=== PATIENT | female | born 1970 | race Caucasian/White ===

== ENCOUNTER 2017-05-27 17:26 | Observation (INO) | payer MEDICAID ==
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
[2017-05-27] MEDS ORDERED: Sodium Chloride 0.9% 1,000 ML IV ONE (18:07)
[2017-05-27] MEDS ORDERED: Meclizine 25 MG Tab PO ONE (18:08)
[2017-05-27] MEDS ORDERED: LORazepam 2 MG/ML MDV IVPUSH ONE (18:08)
[2017-05-27 19:08] LABS: CHLORIDE,CL 107 mmol/L (98-110); SODIUM,NA 140 mmol/L (136-146)
[2017-05-27] MEDS ORDERED: Temazepam 15 MG Cap PO PRN (20:37)
[2017-05-27] MEDS ORDERED: Ibuprofen 200 MG Tab PO PRN (20:37)
[2017-05-27] MEDS ORDERED: Ondansetron 4 MG Tab.DIS PO PRN (20:37)
--- NOTE | 2017-05-27 20:37 | PCM.HP ---
H&P History of Present Illness - General Date of Service: 05/27/17 Admit Problem/Dx: Admission Diagnosis/Problem Admission Diagnosis/Problem Anemia - History of Present Illness Initial Comments - Free Text/Narative: 46-year-old female presenting to ED with chief complaint of dizziness and fatigue 1 month with history of dysfunctional uterine bleeding. Patient states that over the last month she has noticed that she has been more fatigued with occasional episodes of dizziness when she gets up fast. She also states that she has had a headache on and off for the past month. . Patient did have a negative MRI on May 17. Patient does state that she has a history of dysfunctional uterine bleeding and notice a few times over the past month having a "gush of blood" from her vagina area. She does not have a regular cycle. She denies any bloody stool or dark tarry stools. She has not seen a regular provider in quite some time. In the emergency department patient was found to have a hemoglobin of 6.4 with hematocrit 20.1. ECG, CMP, and UA were unremarkable. Patient will be admitted for anemia. Chest Pain Score (Numeric/FACES): 7 - Related Data Allergies/Adverse Reactions: Allergies Allergy/AdvReac Type Severity Reaction Status Date / Time codeine Allergy Hives Verified 05/27/17 17:35 Home Medications: Home Meds . [No Known Home Meds] 05/27/17 [History] Past Medical History HEENT History: Reports: None Cardiovascular History: Reports: None Respiratory History: Reports: None Gastrointestinal History: Reports: None Genitourinary History: Reports: None AURIST History: Reports: Other (See Below) Other OB/BYN History: tubal . Musculoskeletal History: Reports: None Neurological History: Reports: None Psychiatric History: Reports: None Endocrine/Metabolic History: Reports: None Hematologic History: Reports: None Immunologic History: Reports: None Oncologic (Cancer) History: Reports: None Dermatologic History: Reports: None - Past Surgical History Head Surgeries/Procedures: Reports: None HEENT Surgical History: Reports: None Cardiovascular Surgical History: Reports: None Respiratory Surgical History: Reports: None GI Surgical History: Reports: Other (See Below) Female Surgical History: Reports: None, Tubal Ligation Endocrine Surgical History: Reports: None Neurological Surgical History: Reports: None Musculoskeletal Surgical History: Reports: None Oncologic Surgical History: Reports: None Dermatological Surgical History: Reports: None Social & Family History - Family History Family Medical History: Noncontributory - Tobacco Use Smoking Status *Q: Never Smoker - Caffeine Use Caffeine Use: Reports: None - Recreational Drug Use Recreational Drug Use: No H&P Review of Systems - Review of Systems: Review Of Systems: See Below General: Reports: Weakness, Fatigue. Denies: Fever, Chills HEENT: Reports: Headaches. Denies: Contact Lenses, Sore Throat Pulmonary: Reports: Shortness of Breath, Cough. Denies: Wheezing, Sputum Cardiovascular: Denies: Chest Pain, Palpitations, Edema Gastrointestinal: Denies: Abdominal Pain, Black Stool, Bloody Stool Genitourinary: Reports: Abnormal Menses. Denies: Dysuria, Hematuria Musculoskeletal: Denies: Neck Pain, Leg Pain Skin: Denies: Cyanosis Psychiatric: Denies: Confusion Neurological: Reports: Headache. Denies: Confusion, Dizziness Exam - Exam Exam: See Below - Vital Signs Vital Signs: Last Vital Signs Temp 98.7 F 05/27/17 17:35 Pulse 68 05/27/17 20:17 Resp 18 05/27/17 20:17 BP 133/75 05/27/17 20:17 Pulse Ox 98 05/27/17 20:17 Weight: 52.163 kg - Exam Quality Assessment: DVT Prophylaxis General: Alert, Oriented, Cooperative HEENT: Conjunctiva Clear, EACs Clear, EOMI, Hearing Intact, Mucosa Moist & [place] , Nares Patent, Normal Nasal Septum, Posterior Pharynx Clear, PERRLA Neck: Supple, Trachea Midline, 2 Lungs: Clear to Auscultation, Normal Respiratory Effort Cardiovascular: Regular Rate, Regular Rhythm, Normal S1, Normal S2 GI/Abdominal Exam: Normal Bowel Sounds, Soft, Non-Tender, No Organomegaly, No Distention Rectal (Female) Exam: Normal Exam Back Exam: Normal Inspection Extremities: Normal Inspection, Normal Range of Motion, Non-Tender, No Pedal Edema, Normal Capillary Refill Peripheral Pulses: 2+: Radial (L), Radial (R), Posterior Tibial (L), Posterior Tibial (R), Dorsalis Pedis (L), Dorsalis Pedis (R) Skin: Warm, Dry, Intact Neurological: Cranial Nerves Intact Neuro Extensive - Mental Status: Alert, Oriented x3, Normal Mood/Affect, Normal Cognition Neuro Extensive - Motor, Sensory, Reflexes: CN II-XII Intact Psychiatric: Alert, Normal Affect, Normal Mood - Patient Data Lab Results Last 24 hrs: Laboratory Results - last 24 hr 05/27/17 05/27/17 05/27/17 Range/Units 18:30 18:30 18:30 WBC 8.44 (4.0-11.0) K/uL RBC 2.39 L (4.30-5.90) M/uL Hgb 6.4 L (12.0-16.0) g/dL Hct 20.1 L (36.0-46.0) % MCV 84.1 (80.0-98.0) fL MCH 26.8 L (27.0-32.0) pg MCHC 31.8 (31.0-37.0) g/dL RDW Std Deviation 40.8 (28.0-62.0) fl RDW Coeff of Kathy 13 (11.0-15.0) % Plt Count 302 (150-400) K/uL MPV 8.80 (7.40-12.00) fL Add Manual Diff YES Neutrophils % (Manual) 77 (48.0-80.0) % Band Neutrophils % 1 % Lymphocytes % (Manual) 20 (16.0-40.0) % Monocytes % (Manual) 1 (0.0-15.0) % Eosinophils % (Manual) 1 (0.0-7.0) % Nucleated RBC % 0.0 /100WBC Absolute Seg Neuts 6.5 H (1.4-5.7) Band Neutrophils # 0.1 Lymphocytes # (Manual) 1.7 (0.6-2.4) Monocytes # (Manual) 0.1 (0.0-0.8) Eosinophils # (Manual) 0.1 (0.0-0.7) Nucleated RBCs # 0 K/uL Sodium 140 (136-146) mmol/L Potassium 3.7 (3.5-5.1) mmol/L Chloride 107 (98-110) mmol/L Carbon Dioxide 24 (21-31) mmol/L BUN 11 (6.0-23.0) mg/dL Creatinine 0.7 (0.6-1.5) mg/dL Est Cr Clr Drug Dosing 74.17 mL/min Estimated GFR (MDRD) > 60.0 ml/min Glucose 83 (60-110) mg/dL Calcium 8.9 (8.8-10.8) mg/dL Total Bilirubin 0.3 (0.1-1.5) mg/dL AST 19 (5-40) IU/L ALT 14 (8-54) IU/L Alkaline Phosphatase 57 (40-150) Total Protein 6.6 (6.0-8.0) g/dL Albumin 3.9 (3.5-5.0) g/dL Globulin 2.7 (2.0-3.5) g/dL Albumin/Globulin Ratio 1.4 (1.3-2.8) Amylase 78 (10-90) U/L Lipase 13 (7-80) U/L Urine Color Urine Appearance Urine pH (5.0-8.0) Ur Specific [place] (1.001-1.035) Urine Protein (NEGATIVE) mg/dL Urine Glucose (UA) (NEGATIVE) mg/dL Urine Ketones (NEGATIVE) mg/dL Urine Occult Blood (NEGATIVE) Urine Nitrite (NEGATIVE) Urine Bilirubin (NEGATIVE) Urine Urobilinogen (<2.0) EU/dL Ur Leukocyte Esterase (NEGATIVE) Urine RBC (0-2/HPF) Urine WBC (0-5/HPF) Ur Epithelial Cells (NONE-FEW) Amorphous Sediment (NEGATIVE) Urine Bacteria (NEGATIVE) Blood Type O NEGATIVE Antibody Screen NEGATIVE Crossmatch See Detail 05/27/17 Range/Units 18:32 WBC (4.0-11.0) K/uL RBC (4.30-5.90) M/uL Hgb (12.0-16.0) g/dL Hct (36.0-46.0) % MCV (80.0-98.0) fL MCH (27.0-32.0) pg MCHC (31.0-37.0) g/dL RDW Std Deviation (28.0-62.0) fl RDW Coeff of Kathy (11.0-15.0) % Plt Count (150-400) K/uL MPV (7.40-12.00) fL Add Manual Diff Neutrophils % (Manual) (48.0-80.0) % Band Neutrophils % % Lymphocytes % (Manual) (16.0-40.0) % Monocytes % (Manual) (0.0-15.0) % Eosinophils % (Manual) (0.0-7.0) % Nucleated RBC % /100WBC Absolute Seg Neuts (1.4-5.7) Band Neutrophils # Lymphocytes # (Manual) (0.6-2.4) Monocytes # (Manual) (0.0-0.8) Eosinophils # (Manual) (0.0-0.7) Nucleated RBCs # K/uL Sodium (136-146) mmol/L Potassium (3.5-5.1) mmol/L Chloride (98-110) mmol/L Carbon Dioxide (21-31) mmol/L BUN (6.0-23.0) mg/dL Creatinine (0.6-1.5) mg/dL Est Cr Clr Drug Dosing mL/min Estimated GFR (MDRD) ml/min Glucose (60-110) mg/dL Calcium (8.8-10.8) mg/dL Total Bilirubin (0.1-1.5) mg/dL AST (5-40) IU/L ALT (8-54) IU/L Alkaline Phosphatase (40-150) Total Protein (6.0-8.0) g/dL Albumin (3.5-5.0) g/dL Globulin (2.0-3.5) g/dL Albumin/Globulin Ratio (1.3-2.8) Amylase (10-90) U/L Lipase (7-80) U/L Urine Color YELLOW Urine Appearance CLEAR Urine pH 7.0 (5.0-8.0) Ur Specific [place] 1.010 (1.001-1.035) Urine Protein NEGATIVE (NEGATIVE) mg/dL Urine Glucose (UA) NEGATIVE (NEGATIVE) mg/dL Urine Ketones NEGATIVE (NEGATIVE) mg/dL Urine Occult Blood TRACE-LYSED (NEGATIVE) Urine Nitrite NEGATIVE (NEGATIVE) Urine Bilirubin NEGATIVE (NEGATIVE) Urine Urobilinogen 0.2 (<2.0) EU/dL Ur Leukocyte Esterase NEGATIVE (NEGATIVE) Urine RBC 0-1 (0-2/HPF) Urine WBC 0-1 (0-5/HPF) Ur Epithelial Cells FEW (NONE-FEW) Amorphous Sediment RARE (NEGATIVE) Urine Bacteria RARE (NEGATIVE) Blood Type Antibody Screen Crossmatch Result Diagrams: 05/27/17 18:30 05/27/17 18:30 *Q Meaningful Use (ADM) - VTE *Q VTE Criteria *Q: - Stroke *Q Stroke Criteria *Q: - AMI *Q AMI Criteria *Q: - Problem List (1) Anemia SNOMED Code(s): 103779703 ICD Code: D64.9 - ANEMIA, UNSPECIFIED Status: Acute Current Visit: Yes Qualifiers: Anemia type: unspecified type Qualified Code(s): D64.9 - Anemia, unspecified Problem List Initiated/Reviewed/Updated: Yes Orders Last 24hrs: Active Orders 24 hr Category Date Time Status Admission Status [Patient Status] [ADT] Stat ADT 05/27/17 20:23 Active RED BLOOD CELLS LP [BBK] Stat Lab 05/27/17 18:30 Results TYPE AND SCREEN [BBK] Stat Lab 05/27/17 18:30 Results Transfuse Red Blood Cells [COMM] Stat Oth 05/27/17 18:59 Ordered Assessment/Plan Comment:: 38-year-old female admitted 05/27/17 for anemia hemoglobin of 6.4 with history of dysfunctional uterine bleeding. Anemia: Most likely secondary to dysfunctional uterine bleeding. Will type and cross and transfuse 2 units of packed red blood cells now. Iron studies and peripheral smear. Fecal occult to collect. Plan to consult draw bench operator helper tomorrow am. Repeat h and h after 2 units and possible additional transfusion. DUB: hx will consult draw bench operator helper. She denies seeing a provider in quite some time. No hx of cancer. VTE: SCD no pharm secondary to possible active bleeding. Dispo: 1-2 days pending.
[2017-05-27] MEDS ORDERED: Sodium Chloride 0.9% 1,000 ML IV SCH (20:45)
[2017-05-28] MEDS: oxyCODONE 5 MG Tab PO PRN ×3 (06:00→19:50)
--- NOTE | 2017-05-28 06:37 | PCM.PN ---
- General Info Date of Service: 05/28/17 Admission Dx/Problem (Free Text): Admission Diagnosis/Problem Admission Diagnosis/Problem Anemia Subjective Update: Feeling a bit better this morning. Not as tired. Headache overnight but improved now after pain medication. Reports no vaginal bleeding. No chest pain , sob, palpitations, abd pain, leg pain. Functional Status: Reports: Pain Controlled, Ambulating, Urinating - Review of Systems General: Reports: Fatigue. Denies: Fever, Weakness HEENT: Reports: Headaches. Denies: Sore Throat, Visual Changes Pulmonary: Denies: Shortness of Breath, Hemoptysis Cardiovascular: Denies: Chest Pain, Palpitations, Edema Gastrointestinal: Denies: Abdominal Pain, Nausea, Vomiting Genitourinary: Denies: Dysuria, Hematuria Musculoskeletal: Denies: Neck Pain, Leg Pain Skin: Denies: Cyanosis Neurological: Denies: Confusion, Dizziness, Headache Psychiatric: Denies: Confusion - Patient Data Vitals - Most Recent: Last Vital Signs Temp 98.6 F 05/28/17 04:49 Pulse 72 05/28/17 04:49 Resp 16 05/28/17 04:49 BP 97/53 L 05/28/17 04:49 Pulse Ox 95 05/28/17 04:49 Weight - Most Recent: 57.9 kg I&O - Last 24 Hours: Intake & Output 05/27/17 05/27/17 05/28/17 14:59 22:59 06:59 Intake Total 12 718 Output Total 1400 Balance 12 -682 Med Orders - Current: Current Medications Sodium Chloride (Normal Saline) 1,000 mls @ 125 mls/hr IV ASDIRECTED [facility] Last Admin: 05/28/17 04:45 Dose: 125 mls/hr Ibuprofen (Motrin) 200 mg PO Q6H PRN PRN Reason: Pain (mild 1-3) Ondansetron HCl (Zofran Odt) 4 mg PO Q4H PRN PRN Reason: nausea, able to take PO Oxycodone HCl (Oxycodone) 5 mg PO Q4H PRN PRN Reason: Pain (moderate 4-6) Last Admin: 05/28/17 06:00 Dose: 5 mg Temazepam (Restoril) 15 mg PO BEDTIME PRN PRN Reason: Sleep Discontinued Medications Sodium Chloride (Normal Saline) 1,000 mls @ 999 mls/hr IV STAT ONE Stop: 05/27/17 19:07 Last Admin: 05/27/17 18:35 Dose: 999 mls/hr Lorazepam (Ativan) 2 mg IVPUSH ONETIME ONE Stop: 05/27/17 18:09 Last Admin: 05/27/17 18:35 Dose: 2 mg Meclizine HCl (Antivert) 25 mg PO ONETIME ONE Stop: 05/27/17 18:09 Last Admin: 05/27/17 18:35 Dose: 25 mg - Exam Quality Assessment: DVT Prophylaxis General: Alert, Oriented, Cooperative, No Acute Distress HEENT: Pupils Equal, Pupils Reactive, EOMI, Mucous Membr. Moist/[place] Neck: Supple Lungs: Clear to Auscultation, Normal Respiratory Effort Cardiovascular: Regular Rate, Regular Rhythm GI/Abdominal Exam: Normal Bowel Sounds, Soft, Non-Tender, No Organomegaly, No Distention Back Exam: Normal Inspection Extremities: Normal Inspection, Non-Tender, No Pedal Edema Peripheral Pulses: 2+: Radial (L), Radial (R), Posterior Tibial (L), Posterior Tibial (R), Dorsalis Pedis (L), Dorsalis Pedis (R) Skin: Warm, Dry, Intact Neurological: No New Focal Deficit Psy/Mental Status: Alert, Normal Affect, Normal Mood - Problem List & Annotations (1) Anemia SNOMED Code(s): 471684232 Code(s): D64.9 - ANEMIA, UNSPECIFIED Status: Acute Priority: High Current Visit: Yes Qualifiers: Anemia type: iron deficiency Iron deficiency anemia type: chronic blood loss Qualified Code(s): D50.0 - Iron deficiency anemia secondary to blood loss (chronic) - Problem List Review Problem List Initiated/Reviewed/Updated: Yes - My Orders Last 24 Hours: My Active Orders 05/28/17 06:04 BASIC METABOLIC PANEL,BMP [CHEM] Routine CBC WITH AUTO DIFF [HEME] Routine 05/28/17 Breakfast Regular Diet [DIET] - Plan Plan:: 38-year-old female admitted 05/27/17 for anemia hemoglobin of 6.4 with history of dysfunctional uterine bleeding. Anemia: Most likely secondary to dysfunctional uterine bleeding. Received 2 units prbc's hgb increased fom 6.4 to 8.8. Will get Hgb at noon to see if stabilized. Have ordered transvaginal US. Dr. Alexander, road freight brake coupler consulted. DUB: hx will consult butt maker. She denies seeing a provider in quite some time. No hx of cancer. VTE: SCD no pharm secondary to possible active bleeding. Dispo: 1-2 days pending.
[2017-05-28 06:55] LABS: CHLORIDE,CL 109 mmol/L (98-110); SODIUM,NA 137 mmol/L (136-146)
--- NOTE | 2017-05-28 18:57 | PCM.SN ---
- Free Text/Narrative Note: Transvaginal US 05/28/17: 1. Normal endometrial stripe thickness at 9mm. 2. 5 mm sub endometrial cyst in the posterior fundus, significance doubtful. 3. 3.9 cm left ovarian cyst with a 1.6 cm daughter cyst. Both cystic components echo-free 4. Possible 1.6 cm intramural posterior uterine fundal fibroid
[2017-05-29] MEDS: oxyCODONE 5 MG Tab PO PRN ×2 (00:08→08:01)
--- NOTE | 2017-05-29 03:26 | CONS ---
DATE OF CONSULTATION: DATE OF : 1970 PRIMARY CARE PHYSICIAN: None PCP Ms. Gee is a 46-year-old parous patient. She is admitted to [facility] with vaginal bleeding and iron deficiency anemia with a hemoglobin of 6. The patient has not seen a multi line claims adjuster for a period of time, and she has being having excessive vaginal bleeding for extended period of time. The patient is transfused 2 units of packed cells yesterday, and her hemoglobin is now up to 8. She is having minimum vaginal bleeding right now, and her condition is improved since admission. I was consulted for evaluation. I advised the hospitalist doctor, which is Dr. Zambrano who requested the consultation, to order a pelvic ultrasound on the patient, and the patient is going to need endometrial biopsy and again need a good pelvic examination. Since, at this time, the equipment is not available to do this inside the hospital, he is planning to send the patient home tomorrow. I am going to schedule her for an appointment early next week for complete pelvic examination, endometrial biopsy and evaluation, and possible treatment solution for this excessive vaginal bleeding. PATRIZIA / RICA /[id number]
[2017-05-29 05:35] LABS: CHLORIDE,CL 107 mmol/L (98-110); SODIUM,NA 136 mmol/L (136-146)
--- NOTE | 2017-05-29 08:09 | PCM.DCSUM1 ---
Discharge Summary - Hospital Course HPI Initial Comments: 38-year-old female admitted 05/27/17 for anemia hemoglobin of 6.4 with history of dysfunctional uterine bleeding. Brief History: Patient stated that over the last month she had noticed that she was more fatigued with occasional episodes of dizziness when she gets up fast. She also stated that she has had a headache on and off for the past month. . Patient did have a negative MRI on May 17. Patient did state that she has a history of dysfunctional uterine bleeding and notice a few times over the past month having a "gush of blood" from her vaginal area. She does not have a regular cycle. She denies any bloody stool or dark tarry stools. She has not seen a regular provider in quite some time. - Discharge Data Discharge Date: 05/29/17 Discharge Disposition: Home, Self-Care 01 Condition: Good - Discharge Diagnosis/Problem(s) (1) Anemia SNOMED Code(s): 369168949 ICD Code: D64.9 - ANEMIA, UNSPECIFIED Status: Resolved Priority: High Qualifiers: Anemia type: iron deficiency Iron deficiency anemia type: chronic blood loss Qualified Code(s): D50.0 - Iron deficiency anemia secondary to blood loss (chronic) - Patient Summary/Data Consults: Consultations 05/28/17 08:51 Consult to Physician [CONS] Routine - Patient Instructions Diet: Usual Diet as Tolerated Activity: Rest and Relax Today Driving: Do Not Drive Showering/Bathing: May Shower Notify Provider of: Fever, Increased Pain, Nausea and/or Vomiting - Discharge Plan Home Medications: Home Meds . [No Known Home Meds] 05/27/17 [History] Patient Handouts: Anemia, Nonspecific Referrals: Ty Alexander MD [Physician] - Isabela Aceves MD [Primary Care Provider] - - Discharge Summary/Plan Comment DC Time >30 min.: Yes Discharge Summary/Plan Comment: 38-year-old female admitted 05/27/17 for anemia hemoglobin of 6.4 with history of dysfunctional uterine bleeding. Patient stated that over the last month she had noticed that she was more fatigued with occasional episodes of dizziness when she gets up fast. She also stated that she has had a headache on and off for the past month. . Patient did have a negative MRI on May 17. Patient did state that she has a history of dysfunctional uterine bleeding and notice a few times over the past month having a "gush of blood" from her vaginal area. She does not have a regular cycle. She denies any bloody stool or dark tarry stools. She has not seen a regular provider in quite some time. In the emergency department patient was found to have a hemoglobin of 6.4 with hematocrit 20.1. ECG, CMP, and UA were unremarkable. Patient will be admitted for anemia and transfused 2 units of packed red blood cells with resulting hemoglobin increased to 9.2. Transvaginal ultrasound was performed showing a normal endometrial stripe thickness of 9 mm, 5 mm sub- endometrial cyst in the posterior fundus, 3.9 cm left ovarian cyst with a 1.6 cm daughter cyst both cystic components echo-free, and possible 1.6 cm intramural posterior uterine fundal fibroid. Dr. Alexander, INDUSTRIAL GAS [employer]TER was consulted and recommended follow-up with him the following week. On day of discharge patient's hemoglobin had stabilized at 9.0 and she was discharged in good condition with follow-up with her primary care provider as well as Dr. Alexander, INDUSTRIAL GAS FITTER, the following week. She was instructed to return to the emergency department if she had any return of her symptoms. Patient's iron deficient anemia was most likely secondary to slow chronic dysfunctional uterine bleeding over the past month. - General Info Date of Service: 05/29/17 Admission Dx/Problem (Free Text: Admission Diagnosis/Problem Admission Diagnosis/Problem Anemia Subjective Update: Doing well this morning. Not as fatigued. Headache overnight relieved with pain medication. No nausea or vomiting. Would like to be discharged this am. Functional Status: Reports: Pain Controlled - Review of Systems General: Denies: Fever, Weakness, Fatigue HEENT: Denies: Headaches, Visual Changes Pulmonary: Denies: Shortness of Breath, Hemoptysis Cardiovascular: Denies: Chest Pain, Edema Gastrointestinal: Denies: Abdominal Pain, Diarrhea, Nausea, Vomiting Genitourinary: Denies: Dysuria, Hematuria Musculoskeletal: Denies: Neck Pain, Leg Pain Skin: Denies: Cyanosis Neurological: Denies: Confusion, Dizziness, Headache Psychiatric: Denies: Confusion - Patient Data Vitals - Most Recent: Last Vital Signs Temp 98.2 F 05/29/17 04:00 Pulse 61 05/29/17 04:00 Resp 16 05/29/17 04:00 BP 118/65 05/29/17 04:00 Pulse Ox 95 05/29/17 04:00 Weight - Most Recent: 57.9 kg I&O - Last 24 hours: Intake & Output 05/28/17 05/29/17 05/29/17 22:59 06:59 14:59 Intake Total 1700 720 Output Total 600 500 Balance 1100 220 Lab Results - Last 24 hrs: Laboratory Results - last 24 hr 05/28/17 05/29/17 05/29/17 Range/Units 12:07 04:43 04:43 WBC 6.25 (4.0-11.0) K/uL RBC 3.32 L (4.30-5.90) M/uL Hgb 9.2 L 9.0 L (12.0-16.0) g/dL Hct 27.9 L (36.0-46.0) % MCV 84.0 (80.0-98.0) fL MCH 27.1 (27.0-32.0) pg MCHC 32.3 (31.0-37.0) g/dL RDW Std Deviation 43.5 (28.0-62.0) fl RDW Coeff of Kathy 14 (11.0-15.0) % Plt Count 247 (150-400) K/uL MPV 9.20 (7.40-12.00) fL Neut % (Auto) 44.3 L (48.0-80.0) % Lymph % (Auto) 41.0 H (16.0-40.0) % [place] % (Auto) 9.4 (0.0-15.0) % Eos % (Auto) 4.5 (0.0-7.0) % Baso % (Auto) 0.8 (0.0-1.5) % Neut # (Auto) 2.8 (1.4-5.7) K/uL Lymph # (Auto) 2.6 H (0.6-2.4) K/uL [place] # (Auto) 0.6 (0.0-0.8) K/uL Eos # (Auto) 0.3 (0.0-0.7) K/uL Baso # (Auto) 0.1 (0.0-0.1) K/uL Nucleated RBC % 0.0 /100WBC Nucleated RBCs # 0 K/uL Sodium 136 (136-146) mmol/L Potassium 3.9 (3.5-5.1) mmol/L Chloride 107 (98-110) mmol/L Carbon Dioxide 22 (21-31) mmol/L BUN 17 (6.0-23.0) mg/dL Creatinine 0.7 (0.6-1.5) mg/dL Est Cr Clr Drug Dosing 74.17 mL/min Estimated GFR (MDRD) > 60.0 ml/min Glucose 109 (60-110) mg/dL Calcium 8.2 L (8.8-10.8) mg/dL Med Orders - Current: Current Medications Ibuprofen (Motrin) 200 mg PO Q6H PRN PRN Reason: Pain (mild 1-3) Last Admin: 05/28/17 22:00 Dose: 200 mg Ondansetron HCl (Zofran Odt) 4 mg PO Q4H PRN PRN Reason: nausea, able to take PO Oxycodone HCl (Oxycodone) 5 mg PO Q4H PRN PRN Reason: Pain (moderate 4-6) Last Admin: 05/29/17 08:01 Dose: 5 mg Temazepam (Restoril) 15 mg PO BEDTIME PRN PRN Reason: Sleep Discontinued Medications Sodium Chloride (Normal Saline) 1,000 mls @ 999 mls/hr IV STAT ONE Stop: 05/27/17 19:07 Last Admin: 05/27/17 18:35 Dose: 999 mls/hr Sodium Chloride (Normal Saline) 1,000 mls @ 125 mls/hr IV ASDIRECTED [facility] Last Admin: 05/28/17 04:45 Dose: 125 mls/hr Lorazepam (Ativan) 2 mg IVPUSH ONETIME ONE Stop: 05/27/17 18:09 Last Admin: 05/27/17 18:35 Dose: 2 mg Meclizine HCl (Antivert) 25 mg PO ONETIME ONE Stop: 05/27/17 18:09 Last Admin: 05/27/17 18:35 Dose: 25 mg - Exam Quality Assessment: Reports: DVT Prophylaxis General: Reports: Alert, Oriented, Cooperative HEENT: Reports: Pupils Equal, Pupils Reactive, EOMI, Mucous Membr. Moist/[place] Neck: Reports: Supple, Trachea Midline Lungs: Reports: Clear to Auscultation, Normal Respiratory Effort Cardiovascular: Reports: Regular Rate, Regular Rhythm, No Murmurs GI/Abdominal Exam: Normal Bowel Sounds, Soft, Non-Tender, No Organomegaly, No Distention, No Abnormal Bruit, No Mass, Pelvis Stable Back Exam: Reports: Normal Inspection Extremities: Normal Inspection, Normal Range of Motion, Non-Tender, No Pedal Edema, Normal Capillary Refill Skin: Reports: Warm, Dry, Intact Wound/Incisions: Reports: Healing Well Neurological: Reports: No New Focal Deficit Psy/Mental Status: Reports: Alert, Normal Affect, Normal Mood *Q Meaningful Use (DIS) - VTE *Q VTE Criteria *Q: - Stroke *Q Stroke Criteria *Q: - AMI *Q AMI Criteria *Q:
--- NOTE | 2017-05-30 10:12 | US ---
EXAM DATE: 05/27/17 PATIENT'S AGE: 46 Patient: ZULEMA HAMMOND Facility: [place], [place] Site . Site : 1970 Study: US Pelvis [id number] 10:15:09 AM Ordering Physician: Juan Manuel Reed Final Report: INDICATION: Dysfunctional uterine bleeding. TECHNIQUE: Transvaginal scanning was performed to optimally evaluate the endometrium and adnexa. Ovarian blood flow was evaluated with color-flow and pulsed Doppler. COMPARISON: None. FINDINGS: The uterus is normal in size and shape. The uterus measures 7.0 x 5.0 x 3.9 cm. There is question of an intramural 1.6 cm posterior uterine fundal fibroid. The endometrial stripe is normal in thickness at 9 mm. A 5 mm subendometrial cyst in the posterior fundus is noted. A 3.9 cm left ovarian cyst with 1.6 cm daughter cyst is demonstrated. The cystic components are echo-free. The right ovary measures 3.6 x 2.3 x 1.4 cm and left 3.9 x 3.0 x 2.3 cm. Ovarian blood flow is demonstrated with color-flow and pulsed Doppler. No adnexal mass is evident. No free fluid is demonstrated. IMPRESSION: 1. Normal endometrial stripe thickness at 9 mm. 2. 5 mm sub endometrial cyst in the posterior fundus, significance doubtful. 3. 3.9 cm left ovarian cyst with a 1.6 cm daughter cyst. Both cystic components echo-free. 4. Possible 1.6 cm intramural posterior uterine fundal fibroid. Dictated by Grayson Owens MD @ May 28 2017 10:43AM (Electronic Signature) Report Signed by Proxy. SIMRAN
== END 2017-05-29 10:35 | disposition home or self-care (01) ==
LOC: MW.ED 17:26 → MW.ICU 20:58 → INTOOBSV 20:58
PROVIDERS: ADMIT Family Medicine; ATTEND Family Medicine
DX: D50.0 Iron deficiency anemia secondary to blood loss (chronic) (principal); Z88.5 Allergy status to narcotic agent; Z98.51 Tubal ligation status
CPT/HCPCS: 36415; 36430; 76830; 80048; 80053; 81001; 82150; 83550; 83690; 85018; 85025; 85045; 86850; 86900; 86901; 86920; 86921; 86922; 88104; 93005; 96361; 96374; 99285; A9270; J2060; J7040; P9016; 99284; G0378

== ENCOUNTER 2017-06-09 09:09 | Day surgery (SDC) | payer MEDICAID ==
[2017-06-08 11:58] LABS: CHLORIDE,CL 104 mmol/L (98-110); SODIUM,NA 137 mmol/L (136-146)
[~2017-06-09 09:09] MED LIST: Dexamethasone 4 MG/ML 5 ML MDV ONE; Fluorescein 5 ML Vial ONE; Furosemide 40 MG/4 ML VIAL ONE; HYDROmorphone 2 MG/ML SDV ONE; Lactated Ringers 1,000 ML IV SCH; Midazolam 1 MG/ML 2 ML SDV ONE; Ondansetron 4 MG/2 ML SDV ONE; Propofol 200 MG/20 ML SDV ONE; Rocuronium 10 MG/ML 10 ML Syringe ONE; Sodium Chloride 0.9% 10 ML Syringe FLUSH PRN; Sodium Chloride 0.9% 2.5 ML Syringe FLUSH PRN; ceFAZolin 1 GM Vial IM ONE; diphenhydrAMINE 50 MG/ML SDV ONE; fentaNYL 250 MCG/5 ML SDV ONE
[2017-06-09] MEDS ORDERED: Scopolamine 1.5 MG Transdermal Patch TRDERM PRN (10:09)
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
[2017-06-09] MEDS ORDERED: Mineral Oil/Petrolatum Ophth Oint 3.5 GM Tube ONE (11:47)
[2017-06-09] MEDS ORDERED: Succinylcholine/Normal Saline 200 MG/10 ML Syringe ONE (11:48)
[2017-06-09] MEDS ORDERED: ePHEDrine 50 MG/ML SDV ONE (12:00)
[2017-06-09] MEDS ORDERED: Ketorolac 30 MG/ML SDV ONE (12:23)
[2017-06-09] MEDS ORDERED: Acetaminophen/oxyCODONE 325-5 MG Tab PO PRN (12:29)
[2017-06-09] MEDS ORDERED: Morphine 4 MG/ML Syringe IVPUSH PRN (12:29)
[2017-06-09] MEDS ORDERED: Ondansetron 4 MG/2 ML SDV IVPUSH PRN (12:29)
[2017-06-09] MEDS ORDERED: Ketorolac 30 MG/ML SDV IVPUSH ONE (12:29)
[2017-06-09] MEDS ORDERED: Ketorolac 30 MG/ML SDV IVPUSH PRN (12:29)
[2017-06-09] MEDS ORDERED: Promethazine 25 MG/ML SDV IM PRN (12:29)
--- NOTE | 2017-06-09 12:32 | PCM.OPNOTE ---
- General Post-Op/Procedure Note Date of Surgery/Procedure: 06/09/17 Operative Procedure(s): TVH,LSO and Cysto Pre Op Diagnosis: Bleeding Post-Op Diagnosis: Same Anesthesia Technique: General ET Tube Primary Surgeon: Ty Alexander Guide Cruise: Amna Melgar EBL in mLs: 75 Complications: None Condition: Good
--- NOTE | 2017-06-09 13:27 | OR ---
SURGEON: Ty Alexander MD DATE OF PROCEDURE: 06/09/2017 PREOPERATIVE DIAGNOSIS: Menometrorrhagia and anemia. POSTOPERATIVE DIAGNOSIS: Menometrorrhagia and anemia. OPERATION PERFORMED: Total vaginal hysterectomy, left salpingo-oophorectomy. The patient already had her right tube and ovary removed and cystoscopy. HOGSHEAD WEIGHER: CESAR Chiu ANESTHESIA: General endotracheal intubation, Doris Mcgraw and Dr. Herrera. ESTIMATED BLOOD LOSS: Less than 100 mL. COMPLICATIONS: None. INDICATIONS FOR SURGERY: Jasper refer to the admit note. The patient had a previous tubal and she had her right tubes and ovary removed. PROCEDURE IN DETAIL: The patient was brought to the OR, properly identified, and after adequate level of general anesthesia, the patient was placed in lithotomy position, prepped and draped in sterile fashion as usual. A straight catheter was used to empty the bladder and short-weighted speculum was placed in the vagina. A circular incision in the vaginal mucosa utilizing the cautery was done and then the posterior cul-de-sac was entered posteriorly, and the short-weighted speculum replaced with an extending long-weighted speculum. The uterosacral ligament identified from both sides, clamped with a curved Zeppelin, transected, suture ligated with 2-0 Vicryl in a Rosa fashion, held for further identification. The same thing done with the cardinal ligament and the cervicovesical space was entered anteriorly retracting the bladder completely away from the operative field, and the broad ligament was clamped with a curved Zeppelin, transected, suture ligated with 2-0 Vicryl pop-off. The uterine vessel suture ligated at this step and then the uterus was delivered posteriorly, and the superior pedicle was clamped with a curved Zeppelin from both sides. The patient had previously right salpingo-oophorectomy after a tubal ; however, the left tube and ovary was removed with the specimen. Then, the superior pedicle was tied twice with 2-0 Vicryl and held for further identification. Inspection of the operative field shows no oozing, no bleeding. The uterosacral ligament and cardinal ligament anchored to the vagina at 3 and 9 o'clock for added vaginal support, and then we proceeded to close the vaginal cuff with 2-0 Vicryl interrupted [id number] suture. After closing the vaginal cuff, cystoscopy performed, the bladder was intact, both ureteric orifices were seen with urine coming from both of them. Thus, the patency of both ureters were verified. Satisfied with these findings, the instrument and sponge count retrieved from the vagina. The instrument and sponge count was correct. The patient tolerated the procedure well and went to recovery room in stable general condition. PATRIZIA / RICA /[id number]
[2017-06-09] MEDS ORDERED: Belladonna Alkaloids/Opium 16.2-30 MG Supp RECTAL ONE (13:33)
--- NOTE | 2017-06-09 13:41 | PCM.POSTAN ---
POST ANESTHESIA ASSESSMENT - MENTAL STATUS Mental Status: Alert, Oriented - RESPIRATORY Respiratory Status: Respiratory Rate WNL, Airway Patent, O2 Saturation Stable - CARDIOVASCULAR CV Status: Pulse Rate WNL, Blood Pressure Stable - GASTROINTESTINAL GI Status: No Symptoms - PAIN Pain Score: 6 - POST OP HYDRATION Hydration Status: Adequate & Stable - OBSERVATIONS Free Text/Narrative:: no anesthesia problems
[2017-06-09] MEDS: Morphine 2 MG/ML Syringe IVPUSH PRN ×2 (14:53→18:24)
[2017-06-09] MEDS: Acetaminophen/oxyCODONE 325-5 MG Tab PO PRN ×2 (17:16→21:29)
--- NOTE | 2017-06-09 19:53 | PCM48HPAN ---
Post Anesthesia Note - EVALUATION WITHIN 48HRS OF ANESTHETIC Vital Signs in Normal Range: Yes Patient Participated in Evaluation: Yes Respiratory Function Stable: Yes Airway Patent: Yes Cardiovascular Function Stable: Yes Hydration Status Stable: Yes Pain Control Satisfactory: Yes Nausea and Vomiting Control Satisfactory: Yes Mental Status Recovered: Yes - COMMENTS/OBSERVATIONS Free Text/Narrative:: Pt resting comfortably - earlier had issues with pain control, but doing much better.
[2017-06-10] MEDS: Acetaminophen/oxyCODONE 325-5 MG Tab PO PRN ×2 (06:28→11:50)
[2017-06-10 06:54] LABS: CHLORIDE,CL 103 mmol/L (98-110); SODIUM,NA 135 mmol/L (136-146)
[2017-06-10] MEDS: Morphine 2 MG/ML Syringe IVPUSH PRN (07:53)
--- NOTE | 2017-06-10 09:15 | PCM.SURGPN ---
- General Info Date of Service: 06/10/17 POD#: 1 Functional Status: Reports: Pain Controlled - Review of Systems General: Reports: No Symptoms HEENT: Reports: No Symptoms Pulmonary: Reports: No Symptoms Cardiovascular: Reports: No Symptoms Gastrointestinal: Reports: No Symptoms Genitourinary: Reports: No Symptoms Musculoskeletal: Reports: No Symptoms Skin: Reports: No Symptoms Neurological: Reports: No Symptoms Psychiatric: Reports: No Symptoms - Patient Data Vitals - Most Recent: Last Vital Signs Temp 37.1 C 06/10/17 08:00 Pulse 80 06/10/17 08:00 Resp 18 06/10/17 08:00 BP 99/60 06/10/17 08:00 Pulse Ox 96 06/10/17 08:00 Weight - Most Recent: 58.06 kg I&O - Last 24 Hours: Intake & Output 06/09/17 06/10/17 06/10/17 22:59 06:59 14:59 Intake Total 0 975 Output Total 500 Balance 0 475 Lab Results Last 24 Hrs: Laboratory Results - last 24 hr 06/10/17 06/10/17 Range/Units 06:05 06:05 WBC 13.19 H (4.0-11.0) K/uL RBC 2.41 L (4.30-5.90) M/uL Hgb 6.3 L (12.0-16.0) g/dL Hct 20.2 L (36.0-46.0) % MCV 83.8 (80.0-98.0) fL MCH 26.1 L (27.0-32.0) pg MCHC 31.2 (31.0-37.0) g/dL RDW Std Deviation 44.4 (28.0-62.0) fl RDW Coeff of Kathy 14 (11.0-15.0) % Plt Count 234 (150-400) K/uL MPV 9.50 (7.40-12.00) fL Neut % (Auto) 74.0 (48.0-80.0) % Lymph % (Auto) 14.5 L (16.0-40.0) % [place] % (Auto) 11.3 (0.0-15.0) % Eos % (Auto) 0.1 (0.0-7.0) % Baso % (Auto) 0.1 (0.0-1.5) % Neut # (Auto) 9.8 H (1.4-5.7) K/uL Lymph # (Auto) 1.9 (0.6-2.4) K/uL [place] # (Auto) 1.5 H (0.0-0.8) K/uL Eos # (Auto) 0.0 (0.0-0.7) K/uL Baso # (Auto) 0.0 (0.0-0.1) K/uL Nucleated RBC % 0.0 /100WBC Nucleated RBCs # 0 K/uL Sodium 135 L (136-146) mmol/L Potassium 4.5 (3.5-5.1) mmol/L Chloride 103 (98-110) mmol/L Carbon Dioxide 23 (21-31) mmol/L BUN 16 (6.0-23.0) mg/dL Creatinine 0.7 (0.6-1.5) mg/dL Est Cr Clr Drug Dosing 74.17 mL/min Estimated GFR (MDRD) > 60.0 ml/min Glucose 118 H (60-110) mg/dL Calcium 8.9 (8.8-10.8) mg/dL Med Orders - Current: Current Medications Lactated Ringer's (Ringers, Lactated) 1,000 mls @ 500 mls/hr IV .[facility]ET[facility] Last Admin: 06/09/17 09:40 Dose: 500 mls/hr Ketorolac Tromethamine (Toradol) 30 mg IVPUSH Q6H PRN PRN Reason: Pain (severe 7-10) Stop: 06/14/17 12:29 Last Admin: 06/09/17 15:58 Dose: 30 mg Morphine Sulfate (Morphine) 2 mg IVPUSH Q2H PRN PRN Reason: Pain (severe 7-10) Last Admin: 06/10/17 07:53 Dose: 2 mg Morphine Sulfate (Morphine) 4 mg IVPUSH Q2H PRN PRN Reason: Pain (severe 7-10) Last Admin: 06/09/17 23:49 Dose: 4 mg Ondansetron HCl (Zofran) 4 mg IVPUSH Q6H PRN PRN Reason: Nausea/Vomiting Oxycodone/Acetaminophen (Percocet 325-5 Mg) 1 tab PO Q4H PRN PRN Reason: Pain (moderate 4-6) Oxycodone/Acetaminophen (Percocet 325-5 Mg) 2 tab PO Q4H PRN PRN Reason: Pain (moderate 4-6) Last Admin: 06/10/17 06:28 Dose: 2 tab Promethazine HCl (Phenergan) 25 mg IM Q6H PRN PRN Reason: Nausea/Vomiting Scopolamine (Transderm-Scop) 1.5 mg TRDERM Q72H PRN PRN Reason: Nausea Last Admin: 06/09/17 10:15 Dose: 1.5 mg Sodium Chloride (Saline Flush) 10 ml FLUSH ASDIRECTED PRN PRN Reason: Keep Vein Open Sodium Chloride (Saline Flush) 2.5 ml FLUSH ASDIRECTED PRN PRN Reason: Keep Vein Open Discontinued Medications Belladonna Alkaloids/Opium (B & O Supprettes No. 15a) 1 supp RECTAL ONETIME ONE Stop: 06/09/17 13:34 Last Admin: 06/09/17 13:39 Dose: 1 supp Cefazolin Sodium (Ancef) 1 gm IM ONETIME ONE Stop: 06/08/17 11:10 Last Admin: 06/09/17 15:37 Dose: Not Given Dexamethasone (Dexamethasone) Confirm Administered Dose 20 mg .ROUTE .STK-MED ONE Stop: 06/09/17 08:40 Diphenhydramine HCl (Benadryl) Confirm Administered Dose 50 mg .ROUTE .STK-MED ONE Stop: 06/09/17 08:40 Ephedrine Sulfate (Ephedrine Sulfate) Confirm Administered Dose 50 mg .ROUTE .STK-MED ONE Stop: 06/09/17 12:01 Fentanyl (Sublimaze) Confirm Administered Dose 250 mcg .ROUTE .STK-MED ONE Stop: 06/09/17 08:41 Fluorescein Sodium (Ak-Fluor) Confirm Administered Dose 5 ml .ROUTE .STK-MED ONE Stop: 06/09/17 07:23 Furosemide (Lasix) Confirm Administered Dose 40 mg .ROUTE .STK-MED ONE Stop: 06/09/17 08:40 Hydromorphone HCl (Dilaudid) Confirm Administered Dose 2 mg .ROUTE .STK-MED ONE Stop: 06/09/17 08:40 Cefazolin Sodium/Dextrose (Ancef) Confirm Administered Dose 50 mls @ as directed .ROUTE .STK-MED ONE Stop: 06/09/17 08:43 Acetaminophen (Ofirmev) Confirm Administered Dose 100 mls @ as directed IV .STK- MED ONE Stop: 06/09/17 11:52 Ketorolac Tromethamine (Toradol) Confirm Administered Dose 30 mg .ROUTE .STK- MED ONE Stop: 06/09/17 12:24 Ketorolac Tromethamine (Toradol) 30 mg IVPUSH ONETIME ONE Stop: 06/09/17 12:30 Last Admin: 06/09/17 15:38 Dose: Not Given Midazolam HCl (Versed 1 Mg/Ml) Confirm Administered Dose 2 mg .ROUTE .STK-MED ONE Stop: 06/09/17 08:40 Mineral Oil/White Petrolatum (Lacri-Lube S.O.P Oint) Confirm Administered Dose 3.5 gm .ROUTE .STK-MED ONE Stop: 06/09/17 11:48 Ondansetron HCl (Zofran) Confirm Administered Dose 4 mg .ROUTE .STK-MED ONE Stop: 06/09/17 08:40 Propofol (Diprivan 20 Ml) Confirm Administered Dose 200 mg .ROUTE .STK-MED ONE Stop: 06/09/17 08:40 Rocuronium [place] (Zemuron) Confirm Administered Dose 100 mg .ROUTE .STK-MED ONE Stop: 06/09/17 08:40 Succinylcholine Chloride (Succinylcholine In Ns Pf) Confirm Administered Dose 200 mg .ROUTE .STK-MED ONE Stop: 06/09/17 11:49 - Exam Wound/Incisions: Healing Well General: Alert, Oriented HEENT: Pupils Equal Neck: Supple Lungs: Clear to Auscultation, Normal Respiratory Effort Cardiovascular: Regular Rate, Regular Rhythm GI/Abdominal Exam: Normal Bowel Sounds, Soft, Non-Tender, No Organomegaly, No Distention, No Abnormal Bruit, No Mass, Pelvis Stable Extremities: Normal Inspection, Normal Range of Motion, Non-Tender, No Pedal Edema, Normal Capillary Refill Skin: Warm, Dry, Intact Neurological: No New Focal Deficit Psy/Mental Status: Alert, Normal Affect, Normal Mood - Problem List Review Problem List Initiated/Reviewed/Updated: Yes - My Orders Last 24 Hours: Active Orders 24 hr Category Date Time Status Patient Status [ADT] Routine ADT 06/09/17 12:29 Active Notify Provider Vital Signs [RC] ASDIRECTED Care 06/09/17 12:29 Active Oxygen Therapy [RC] ASDIRECTED Care 06/09/17 12:29 Active RT Incentive Spirometry [RC] Q2HWA Care 06/09/17 12:29 Active Up With Assistance [RC] PER UNIT ROUTINE Care 06/09/17 12:29 Active Up ad Leeanna [RC] PER UNIT ROUTINE Care 06/09/17 12:29 Active Vital Signs [RC] Q4H Care 06/09/17 12:29 Active Regular Diet [DIET] Diet 06/09/17 Dinner Active Acetaminophen/oxyCODONE [Percocet 325-5 MG] Med 06/09/17 12:29 Active 1 tab PO Q4H PRN Acetaminophen/oxyCODONE [Percocet 325-5 MG] Med 06/09/17 12:29 Active 2 tab PO Q4H PRN Ketorolac [Toradol] Med 06/09/17 12:29 Active 30 mg IVPUSH Q6H PRN Morphine Med 06/09/17 12:29 Active 2 mg IVPUSH Q2H PRN Morphine Med 06/09/17 12:29 Active 4 mg IVPUSH Q2H PRN Ondansetron [Zofran] Med 06/09/17 12:29 Active 4 mg IVPUSH Q6H PRN Promethazine [Phenergan] Med 06/09/17 12:29 Active 25 mg IM Q6H PRN Scopolamine [Transderm-Scop] Med 06/09/17 10:09 Active 1.5 mg TRDERM Q72H PRN Peripheral IV Discontinue [OM.PC] Routine Oth 06/09/17 12:29 Ordered Sequential Compression Device [OM.PC] Per Unit Routine Oth 06/09/17 12:29 Ordered Resuscitation Status Routine Resus Stat 06/09/17 12:29 Ordered Medication Orders Lactated Ringer's (Ringers, Lactated) 1,000 mls @ 500 mls/hr IV .[facility] Last Admin: 06/09/17 09:40 Dose: 500 mls/hr Ketorolac Tromethamine (Toradol) 30 mg IVPUSH Q6H PRN PRN Reason: Pain (severe 7-10) Stop: 06/14/17 12:29 Last Admin: 06/09/17 15:58 Dose: 30 mg Morphine Sulfate (Morphine) 2 mg IVPUSH Q2H PRN PRN Reason: Pain (severe 7-10) Last Admin: 06/10/17 07:53 Dose: 2 mg Admin: 06/09/17 18:24 Dose: 2 mg Admin: 06/09/17 14:53 Dose: 2 mg Morphine Sulfate (Morphine) 4 mg IVPUSH Q2H PRN PRN Reason: Pain (severe 7-10) Last Admin: 06/09/17 23:49 Dose: 4 mg Ondansetron HCl (Zofran) 4 mg IVPUSH Q6H PRN PRN Reason: Nausea/Vomiting Oxycodone/Acetaminophen (Percocet 325-5 Mg) 1 tab PO Q4H PRN PRN Reason: Pain (moderate 4-6) Oxycodone/Acetaminophen (Percocet 325-5 Mg) 2 tab PO Q4H PRN PRN Reason: Pain (moderate 4-6) Last Admin: 06/10/17 06:28 Dose: 2 tab Admin: 06/09/17 21:29 Dose: 2 tab Admin: 06/09/17 17:16 Dose: 2 tab Promethazine HCl (Phenergan) 25 mg IM Q6H PRN PRN Reason: Nausea/Vomiting Scopolamine (Transderm-Scop) 1.5 mg TRDERM Q72H PRN PRN Reason: Nausea Last Admin: 06/09/17 10:15 Dose: 1.5 mg Sodium Chloride (Saline Flush) 10 ml FLUSH ASDIRECTED PRN PRN Reason: Keep Vein Open Sodium Chloride (Saline Flush) 2.5 ml FLUSH ASDIRECTED PRN PRN Reason: Keep Vein Open - Assessment Assessment (Free Text/Narrative):: Status post vaginal hysterectomy patient is doing well no vaginal bleeding on regular diet ambulating well and voiding without any problem - Plan Plan (Free Text/Narrative):: Patient will be discharged today post hysterectomy instruction is given to the patient prescription for Percocet 7.5/325 is given to the patient for postoperative pain examination one week
--- NOTE | 2017-06-10 09:16 | PCM.DCSUM1 ---
Discharge Summary - Discharge Data Discharge Date: 06/10/17 Discharge Disposition: Home, Self-Care 01 Condition: Good - Patient Summary/Data Operative Procedure(s) Performed: TVH,LSO and Cysto - Patient Instructions Diet: Usual Diet as Tolerated Activity: As Tolerated Driving: Do Not Drive Showering/Bathing: May Shower Notify Provider of: Fever, Increased Pain, Nausea and/or Vomiting - Discharge Plan Home Medications: Home Meds Amitriptyline [Elavil] 10 mg PO BEDTIME 06/07/17 [History] Butalb/Acetaminophen/Caffeine [Iuolxa-Qikfwuut-Fdsf 50-325-40] 1 - 2 tab PO ASDIRECTED PRN 06/07/17 [History] Fluticasone Propionate [Flonase Allergy Relief] 1 spray NASBOTH DAILY 06/07/17 [ History] Rizatriptan Benzoate [Rizatriptan] 10 mg PO ASDIRECTED PRN 06/07/17 [History] Patient Handouts: Acetaminophen; Oxycodone tablets, Laparoscopically Assisted Vaginal Hysterectomy Referrals: Ty Alexander MD [Physician] - 06/17/17 8:30 am - General Info Date of Service: 06/10/17 Functional Status: Reports: Pain Controlled - Review of Systems General: Reports: No Symptoms HEENT: Reports: No Symptoms Pulmonary: Reports: No Symptoms Cardiovascular: Reports: No Symptoms Gastrointestinal: Reports: No Symptoms Genitourinary: Reports: No Symptoms Musculoskeletal: Reports: No Symptoms Skin: Reports: No Symptoms Neurological: Reports: No Symptoms Psychiatric: Reports: No Symptoms - Patient Data Vitals - Most Recent: Last Vital Signs Temp 37.1 C 06/10/17 08:00 Pulse 80 06/10/17 08:00 Resp 18 06/10/17 08:00 BP 99/60 06/10/17 08:00 Pulse Ox 96 06/10/17 08:00 Weight - Most Recent: 58.06 kg I&O - Last 24 hours: Intake & Output 06/09/17 06/10/17 06/10/17 22:59 06:59 14:59 Intake Total 0 975 Output Total 500 Balance 0 475 Lab Results - Last 24 hrs: Laboratory Results - last 24 hr 06/10/17 06/10/17 Range/Units 06:05 06:05 WBC 13.19 H (4.0-11.0) K/uL RBC 2.41 L (4.30-5.90) M/uL Hgb 6.3 L (12.0-16.0) g/dL Hct 20.2 L (36.0-46.0) % MCV 83.8 (80.0-98.0) fL MCH 26.1 L (27.0-32.0) pg MCHC 31.2 (31.0-37.0) g/dL RDW Std Deviation 44.4 (28.0-62.0) fl RDW Coeff of Kathy 14 (11.0-15.0) % Plt Count 234 (150-400) K/uL MPV 9.50 (7.40-12.00) fL Neut % (Auto) 74.0 (48.0-80.0) % Lymph % (Auto) 14.5 L (16.0-40.0) % [place] % (Auto) 11.3 (0.0-15.0) % Eos % (Auto) 0.1 (0.0-7.0) % Baso % (Auto) 0.1 (0.0-1.5) % Neut # (Auto) 9.8 H (1.4-5.7) K/uL Lymph # (Auto) 1.9 (0.6-2.4) K/uL [place] # (Auto) 1.5 H (0.0-0.8) K/uL Eos # (Auto) 0.0 (0.0-0.7) K/uL Baso # (Auto) 0.0 (0.0-0.1) K/uL Nucleated RBC % 0.0 /100WBC Nucleated RBCs # 0 K/uL Sodium 135 L (136-146) mmol/L Potassium 4.5 (3.5-5.1) mmol/L Chloride 103 (98-110) mmol/L Carbon Dioxide 23 (21-31) mmol/L BUN 16 (6.0-23.0) mg/dL Creatinine 0.7 (0.6-1.5) mg/dL Est Cr Clr Drug Dosing 74.17 mL/min Estimated GFR (MDRD) > 60.0 ml/min Glucose 118 H (60-110) mg/dL Calcium 8.9 (8.8-10.8) mg/dL Med Orders - Current: Current Medications Lactated Ringer's (Ringers, Lactated) 1,000 mls @ 500 mls/hr IV .[facility]ETTA Last Admin: 06/09/17 09:40 Dose: 500 mls/hr Ketorolac Tromethamine (Toradol) 30 mg IVPUSH Q6H PRN PRN Reason: Pain (severe 7-10) Stop: 06/14/17 12:29 Last Admin: 06/09/17 15:58 Dose: 30 mg Morphine Sulfate (Morphine) 2 mg IVPUSH Q2H PRN PRN Reason: Pain (severe 7-10) Last Admin: 06/10/17 07:53 Dose: 2 mg Morphine Sulfate (Morphine) 4 mg IVPUSH Q2H PRN PRN Reason: Pain (severe 7-10) Last Admin: 06/09/17 23:49 Dose: 4 mg Ondansetron HCl (Zofran) 4 mg IVPUSH Q6H PRN PRN Reason: Nausea/Vomiting Oxycodone/Acetaminophen (Percocet 325-5 Mg) 1 tab PO Q4H PRN PRN Reason: Pain (moderate 4-6) Oxycodone/Acetaminophen (Percocet 325-5 Mg) 2 tab PO Q4H PRN PRN Reason: Pain (moderate 4-6) Last Admin: 06/10/17 06:28 Dose: 2 tab Promethazine HCl (Phenergan) 25 mg IM Q6H PRN PRN Reason: Nausea/Vomiting Scopolamine (Transderm-Scop) 1.5 mg TRDERM Q72H PRN PRN Reason: Nausea Last Admin: 06/09/17 10:15 Dose: 1.5 mg Sodium Chloride (Saline Flush) 10 ml FLUSH ASDIRECTED PRN PRN Reason: Keep Vein Open Sodium Chloride (Saline Flush) 2.5 ml FLUSH ASDIRECTED PRN PRN Reason: Keep Vein Open Discontinued Medications Belladonna Alkaloids/Opium (B & O Supprettes No. 15a) 1 supp RECTAL ONETIME ONE Stop: 06/09/17 13:34 Last Admin: 06/09/17 13:39 Dose: 1 supp Cefazolin Sodium (Ancef) 1 gm IM ONETIME ONE Stop: 06/08/17 11:10 Last Admin: 06/09/17 15:37 Dose: Not Given Dexamethasone (Dexamethasone) Confirm Administered Dose 20 mg .ROUTE .[facility]-MED ONE Stop: 06/09/17 08:40 Diphenhydramine HCl (Benadryl) Confirm Administered Dose 50 mg .ROUTE .ST-MED ONE Stop: 06/09/17 08:40 Ephedrine Sulfate (Ephedrine Sulfate) Confirm Administered Dose 50 mg .ROUTE .[facility] ONE Stop: 06/09/17 12:01 Fentanyl (Sublimaze) Confirm Administered Dose 250 mcg .ROUTE .ST-MED ONE Stop: 06/09/17 08:41 Fluorescein Sodium (Ak-Fluor) Confirm Administered Dose 5 ml .ROUTE .[facility] ONE Stop: 06/09/17 07:23 Furosemide (Lasix) Confirm Administered Dose 40 mg .ROUTE .[facility] ONE Stop: 06/09/17 08:40 Hydromorphone HCl (Dilaudid) Confirm Administered Dose 2 mg .ROUTE .[facility] ONE Stop: 06/09/17 08:40 Cefazolin Sodium/Dextrose (Ancef) Confirm Administered Dose 50 mls @ as directed .ROUTE .[facility] ONE Stop: 06/09/17 08:43 Acetaminophen (Ofirmev) Confirm Administered Dose 100 mls @ as directed IV .[facility] ONE Stop: 06/09/17 11:52 Ketorolac Tromethamine (Toradol) Confirm Administered Dose 30 mg .ROUTE .[facility] MED ONE Stop: 06/09/17 12:24 Ketorolac Tromethamine (Toradol) 30 mg IVPUSH ONETIME ONE Stop: 06/09/17 12:30 Last Admin: 06/09/17 15:38 Dose: Not Given Midazolam HCl (Versed 1 Mg/Ml) Confirm Administered Dose 2 mg .ROUTE .[facility]-MED ONE Stop: 06/09/17 08:40 Mineral Oil/White Petrolatum (Lacri-Lube S.O.P Oint) Confirm Administered Dose 3.5 gm .ROUTE .ST-MED ONE Stop: 06/09/17 11:48 Ondansetron HCl (Zofran) Confirm Administered Dose 4 mg .ROUTE .[facility] ONE Stop: 06/09/17 08:40 Propofol (Diprivan 20 Ml) Confirm Administered Dose 200 mg .ROUTE .STK-MED ONE Stop: 06/09/17 08:40 Rocuronium [place] (Zemuron) Confirm Administered Dose 100 mg .ROUTE .STK-MED ONE Stop: 06/09/17 08:40 Succinylcholine Chloride (Succinylcholine In Ns Pf) Confirm Administered Dose 200 mg .ROUTE .STK-MED ONE Stop: 06/09/17 11:49 - Exam General: Reports: Alert, Oriented HEENT: Reports: Pupils Equal, Pupils Reactive, EOMI, Mucous Membr. Moist/[place] Neck: Reports: Supple Lungs: Reports: Clear to Auscultation, Normal Respiratory Effort Cardiovascular: Reports: Regular Rate, Regular Rhythm GI/Abdominal Exam: Normal Bowel Sounds, Soft, Non-Tender, No Organomegaly, No Distention, No Abnormal Bruit, No Mass, Pelvis Stable (Female) Exam: Normal External Exam, Normal Speculum Exam, Normal Bimanual Exam Rectal (Female) Exam: Normal Exam, Normal Rectal Tone Back Exam: Reports: Normal Inspection, Full Range of Motion Extremities: Normal Inspection, Normal Range of Motion, Non-Tender, No Pedal Edema, Normal Capillary Refill Skin: Reports: Warm, Dry, Intact Wound/Incisions: Reports: Healing Well Neurological: Reports: No New Focal Deficit Psy/Mental Status: Reports: Alert, Normal Affect, Normal Mood *Q Meaningful Use (DIS) - VTE *Q VTE Criteria *Q: - Stroke *Q Stroke Criteria *Q: - AMI *Q AMI Criteria *Q:
== END 2017-06-10 13:30 | disposition home or self-care (01) ==
LOC: MW.SDS 09:09 → MW.MS 14:53 → MW.SDS 06-10 13:30
PROVIDERS: ATTEND Obstetrics & Gynecology
DX: N85.01 Benign endometrial hyperplasia (principal); N80.0 Endometriosis of uterus; N87.9 Dysplasia of cervix uteri, unspecified; N83.02 Follicular cyst of left ovary; D64.9 Anemia, unspecified; F41.9 Anxiety disorder, unspecified; M25.50 Pain in unspecified joint; J45.909 Unspecified asthma, uncomplicated; F32.9 Major depressive disorder, single episode, unspecified; Z79.899 Other long term (current) drug therapy; Z79.51 Long term (current) use of inhaled steroids; Z88.5 Allergy status to narcotic agent; Z91.09 Other allergy status, other than to drugs and biological substances
CPT/HCPCS: 36415; 58262; 80048; 84703; 85025; 85027; 86850; 86900; 86901; A9270; J0690; J1100; J1170; J1200; J1885; J2250; J2270; J2405; J3010; J7120; 00944; 88307; J1940; J2704

== ENCOUNTER 2017-06-21 08:33 | Emergency (ER) | payer MEDICAID ==
[2017-06-21] MEDS ORDERED: Ketorolac 30 MG/ML SDV IVPUSH ONE ×2 (09:02→09:04)
[2017-06-21] MEDS ORDERED: Sodium Chloride 0.9% 1,000 ML IV ONE ×2 (09:02→11:33)
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
[2017-06-21 09:52] LABS: CHLORIDE,CL 105 mmol/L (98-110); SODIUM,NA 134 mmol/L (136-146)
[2017-06-21] MEDS ORDERED: Meperidine PF 50 MG/ML Syringe IVPUSH ONE (10:55)
[2017-06-21] MEDS ORDERED: Piperacillin/Tazobactam 3.375 GM in Sodium Chloride 0.9% 50 ML IV ONE (11:32)
--- NOTE | 2017-06-21 13:04 | CT ---
Abdomen and pelvis CT without contrast History: Lower quadrant abdominal pain and vaginal bleeding with recent hysterectomy Comparison: No recent similar Findings: Multiple computed tomographic sections were acquired without IV contrast Lung window images show normal lung bases. There is no focal abnormality of the liver spleen or biliary tract a few tiny air bubbles are present near the justyn hepatis likely free air from recent surgery Kidneys are symmetric and nonobstructed with no retroperitoneal mass or other significant finding Scan through the low abdomen into the pelvis demonstrates no specific abnormality of the bowel. There is a small amount of granulation tissue within the post operative pelvis with a few air bubbles but no fluid collection to suggest abscess. There is no dilated bowel or other abnormality identified. A few air bubbles are present within the v agina Impression: Postoperative findings without abscess identified and no definite abnormality of the oliverio tourinary tract.
== END 2017-06-21 13:32 | disposition other institution (70) ==
LOC: MW.ED 08:33
DX: R10.31 Right lower quadrant pain (principal); R10.32 Left lower quadrant pain; I95.9 Hypotension, unspecified; J45.909 Unspecified asthma, uncomplicated; D72.829 Elevated white blood cell count, unspecified; Z90.710 Acquired absence of both cervix and uterus; Z88.5 Allergy status to narcotic agent; Z88.6 Allergy status to analgesic agent
CPT/HCPCS: 36415; 74176; 80053; 81001; 82150; 83605; 83690; 85025; 87040; 87086; 96361; 96365; 96367; 96375; 99285; J1885; J2175; J2543; J3370; J7040; J7050; 99283

== ENCOUNTER 2017-07-15 13:13 | Emergency (ER) | payer MEDICAID ==
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
[2017-07-15] MEDS ORDERED: Sodium Chloride 0.9% 500 ML IV SCH (14:00)
[2017-07-15 14:15] LABS: CHLORIDE,CL 108 mmol/L (98-110); SODIUM,NA 139 mmol/L (136-146)
--- NOTE | 2017-07-15 16:22 | CR ---
EXAM DATE: 07/15/17 PATIENT'S AGE: 47 Patient: ZULEMA HAMMOND Facility: [place], [place] Site . Site : [id number] Study: XRay Chest [id number] 1:38:14 PM Ordering Physician: Jacquelin Sigala Final Report: INDICATION: Pain. Shortness of breath. TECHNIQUE: AP portable chest x-ray. FINDINGS: Heart size normal. Lungs clear without infiltrate or consolidation. Lungs are hyperinflated or there has been a deep inspiration. Chest otherwise unremarkable. Dictated by Steven Rich MD @ Jul 15 2017 1:39PM (Electronic Signature) Report Signed by Proxy. SIMRAN
== END 2017-07-15 15:10 | disposition home or self-care (01) ==
LOC: MW.ED 13:13
DX: M94.0 Chondrocostal junction syndrome [Tietze] (principal); J45.909 Unspecified asthma, uncomplicated; F32.9 Major depressive disorder, single episode, unspecified; Z79.51 Long term (current) use of inhaled steroids; Z79.1 Long term (current) use of non-steroidal anti-inflammatories (NSAID); Z79.891 Long term (current) use of opiate analgesic; Z88.5 Allergy status to narcotic agent; Z88.8 Allergy status to other drugs, medicaments and biological substances
CPT/HCPCS: 36415; 71045; 71045-26; 80053; 82550; 82553; 83690; 84484; 85025; 85610; 93005; 99284; 99285-25

== ENCOUNTER 2017-07-28 21:19 | Observation (INO) | payer MEDICAID ==
[2017-07-28] MEDS ORDERED: Nitroglycerin 0.4 MG Tab.SL SL PRN (21:28)
[2017-07-28] MEDS ORDERED: Aspirin 81 MG Tab.Chew PO ONE (21:28)
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
[2017-07-28 22:11] LABS: CHLORIDE,CL 104 mmol/L (98-107); SODIUM,NA 140 mmol/L (136-145)
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
[2017-07-28] MEDS ORDERED: Acetaminophen 325 MG Tab PO PRN (23:42)
[2017-07-29] MEDS: Ondansetron 4 MG Tab.DIS PO PRN ×2 (00:39→10:23)
[2017-07-29] MEDS: Enoxaparin 40 MG/0.4 ML Syringe SUBCUT SCH ×2 (00:41→09:15)
[2017-07-29] MEDS: Pantoprazole 40 MG Vial IVPUSH SCH ×2 (00:41→09:21)
[2017-07-29] MEDS: Morphine 2 MG/ML Syringe IVPUSH PRN ×2 (00:42→08:05)
[2017-07-29 05:36] LABS: CHLORIDE,CL 106 mmol/L (98-107); SODIUM,NA 141 mmol/L (136-145)
--- NOTE | 2017-07-29 14:50 | CR ---
EXAM DATE: 07/28/17 PATIENT'S AGE: 47 Patient: ZULEMA HAMMOND Facility: [place], [place] Site . Site : [id number] Study: XRay Chest [id number]/8/2018 9:46:00 PM Ordering Physician: Doctor Subramanian Final Report: INDICATION: Chest pain TECHNIQUE: Single view chest. FINDINGS: The lungs are clear. The heart, mediastinum and pulmonary vessels are of normal size. There is no evidence of pleural disease. IMPRESSION: Negative chest. Dictated by Karolyn Culver MD @ Jul 28 2017 9:49PM (Electronic Signature) Report Signed by Proxy. SIMRAN
== END 2017-07-29 12:30 | disposition home or self-care (01) ==
LOC: MW.ED 21:19 → MW.MS 23:06
PROVIDERS: ADMIT Family Medicine; ATTEND Family Medicine
DX: R07.89 Other chest pain (principal); F43.10 Post-traumatic stress disorder, unspecified; J45.909 Unspecified asthma, uncomplicated; F41.9 Anxiety disorder, unspecified; F32.9 Major depressive disorder, single episode, unspecified; K21.9 Gastro-esophageal reflux disease without esophagitis; M77.02 Medial epicondylitis, left elbow; Z90.710 Acquired absence of both cervix and uterus; Z88.5 Allergy status to narcotic agent; Z88.8 Allergy status to other drugs, medicaments and biological substances; Z79.51 Long term (current) use of inhaled steroids; Z79.899 Other long term (current) drug therapy; Z79.82 Long term (current) use of aspirin
CPT/HCPCS: 36415; 71045; 80048; 80053; 83735; 84484; 85025; 85379; 86677; 93005; 96372; 96375; 96376; 99285; A9270; C9113; G0378; J1650; J2270; 99284